=== PATIENT | male | born 1975 | race Caucasian/White ===

== ENCOUNTER → 2021-04-13 | Outpatient (CLI) | payer OTHER ==
[~2021-04-13] MED LIST: ASPIRIN325 MG PO; IBU800 MG PO; KEFLEX CAP 250250 MG PO; NO HOME MEDS; PERCOCET 10-321 EACH PO; VITAMIN C500 M4 PO; VITAMIN D31250 MCG PO
== END ==
LOC: KOH-I 13:52
DX: M25.572 Pain in left ankle and joints of left foot (principal); S82.392A Other fracture of lower end of left tibia, initial encounter for closed fracture
CPT/HCPCS: 73610; 73630

== ENCOUNTER 2021-04-21 09:01 | Day surgery (SDC) | payer OTHER ==
[~2021-04-21] VITALS: Ht 167.6 cm; Wt 74.8 kg
[2021-04-21] MEDS ORDERED: NO HOME MEDS (17:03)
[2021-04-22 09:48] LABS: HEMOGLOBIN 14.7 gm/dl (14.0-17.5); RED BLOOD COUNT 4.82 M/UL (4.20-5.50)
[2021-04-22 10:13] LABS: BUN/CREATININE RATIO 18 (0-10)
[2021-04-22] MEDS ORDERED: PERCOCET 10-321 EACH PO (17:20)
[2021-04-22] MEDS ORDERED: IBU800 MG PO (17:20)
[2021-04-22] MEDS ORDERED: VITAMIN C500 M4 PO (17:21)
[2021-04-22] MEDS ORDERED: KEFLEX CAP 250250 MG PO (17:22)
[2021-04-22] MEDS ORDERED: VITAMIN D31250 MCG PO (17:22)
[2021-04-22] MEDS ORDERED: ASPIRIN325 MG PO (17:23)
== END 2021-04-22 18:17 | disposition home or self-care (01) ==
LOC: OR 09:01 → MED SURG 4 16:35 → OR 04-22 18:17
PROVIDERS: Internal Medicine
DX: S82.872A Displaced pilon fracture of left tibia, initial encounter for closed fracture (principal); U07.1 COVID-19; F17.210 Nicotine dependence, cigarettes, uncomplicated; Z88.0 Allergy status to penicillin; W13.0XXA Fall from, out of or through balcony, initial encounter
CPT/HCPCS: 36415; 71045; 73610; 76000; 80053; 85007; 85027; C1713; J0690; J1100; J1885; J2001; J2250; J2405; J2704; J2795; J3010; J3370; J7120; Q4133

== ENCOUNTER → 2021-05-13 | Outpatient (CLI) | payer OTHER | LOC: KOH-I 14:22 | DX: S82.872D Displaced pilon fracture of left tibia, subsequent encounter for closed fracture with routine healing (principal) | CPT/HCPCS: 73610 ==

== ENCOUNTER → 2021-06-03 | Outpatient (CLI) | payer OTHER | LOC: KOH-I 15:28 | DX: S82.872D Displaced pilon fracture of left tibia, subsequent encounter for closed fracture with routine healing (principal) | CPT/HCPCS: 73610 ==

== ENCOUNTER → 2021-06-21 | Outpatient (CLI) | payer OTHER | LOC: KOH-I 15:14 | DX: M25.572 Pain in left ankle and joints of left foot (principal); S82.872A Displaced pilon fracture of left tibia, initial encounter for closed fracture | CPT/HCPCS: 73610 ==